=== PATIENT | female | born 1980 | race Hispanic/Latino ===

== ENCOUNTER 2018-04-21 21:22 | Emergency (ER) | payer OTHER ==
[2018-04-21 21:42] VITALS: RESP 18; TEMP 98.4; O2SAT 100
[2018-04-21] MEDS ORDERED: Apap-Butalbital-Caffeine 325-50-40mg Tab PO STA (21:48)
--- NOTE | 2018-04-21 21:50 | ED PDOC ---
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 Denies weakness, sensory change, neck stiffness, fevers, chills. Took NSAID today with some relief. PMD: None Past Medical History Reviewed: Historical Data, Nursing Documentation, Vital Signs Vital Signs: Last Vital Signs Temp 98.4 F 04/21/18 21:39 Pulse 70 04/21/18 21:39 Resp 18 04/21/18 21:39 BP 122/79 04/21/18 21:39 Pulse Ox 100 04/21/18 21:39 - Medical History PMH: No Chronic Diseases Denies: Chronic Kidney Disease - Family History Family History: States: Unknown Family Hx - Home Medications Home Medications: Ambulatory Orders Medication Instructions Recorded Ranitidine HCl [Zantac] 150 mg PO BID #10 tablet 01/11/16 Aspirin/Acetaminophen/Caffeine 1 each PO Q8 PRN #30 tablet 04/21/18 [Excedrin Migraine Geltab] - Allergies Allergies/Adverse Reactions: Allergies Allergy/AdvReac Type Severity Reaction Status Date / Time No Known Allergies Allergy Verified 04/21/18 21:39 Review of Systems ROS Statement: Except As Marked, All Systems Reviewed And Found Negative ENT: Positive for: Ear Pain Neurological: Positive for: Headache Physical Exam - Reviewed Nursing Documentation Reviewed: Yes Vital Signs Reviewed: Yes - Physical Exam Appears: Positive for: Well, Non-toxic, No Acute Distress Head Exam: Positive for: ATRAUMATIC, NORMAL INSPECTION, NORMOCEPHALIC Skin: Positive for: Normal Color, Warm, DRY Eye Exam: Positive for: EOMI, Normal appearance, PERRL ENT: Positive for: Normal ENT Inspection, TM Is/Are (normal) Neck: Positive for: Normal, Painless ROM Cardiovascular/Chest: Positive for: Regular Rate, Rhythm Respiratory: Positive for: CNT, Normal Breath Sounds Gastrointestinal/Abdominal: Positive for: Normal Exam, Soft. 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 Negative for: Motor/Sensory Deficits - ECG O2 Sat by Pulse Oximetry: 100 Pulse Ox Interpretation: Normal Medical Decision Making Medical Decision MakinPM Patient presenting with headache --Well appearing, normal vitals, nonfocal exam --Given daily headache x 3 weeks, will check CT to r/o mass lesion or other intracranial abnormality --Will give Fioricet and re-eval 11PM --CT Head is negative --Patient is feeling better --Advised patient to followup in the clinic --Return precautions given Disposition - Clinical Impression Clinical Impression: Headache - Patient ED Disposition Is Patient to be Admitted: No - Disposition Referrals: [facility] [Outside] Disposition: Routine/Home Disposition Time: 23:10 Condition: STABLE Prescriptions: Aspirin/Acetaminophen/Caffeine [Excedrin Migraine Geltab] 1 each PO Q8 PRN #30 tablet PRN Reason: Pain, Moderate (4-7) Instructions: Headache, Adult Forms: [facility] (Turkish) Print Language: BENGALI
[2018-04-21] MEDS ORDERED: Apap-Butalbital-Caffeine 325-50-40mg Tab ONE (21:54)
[2018-04-21 23:25] VITALS: BP 118/74; PULSE 76
--- NOTE | 2018-04-22 11:22 | CT ---
Date of service: 04/21/2018 PROCEDURE: CT HEAD WITHOUT CONTRAST. HISTORY: MOORE daily x 3 weeks COMPARISON: None available. TECHNIQUE: Axial computed tomography images were obtained through the head/brain without intravenous contrast. Radiation dose: Total exam DLP = 802.73 mGy-cm. This CT exam was performed using one or more of the following dose reduction techniques: Automated exposure control, adjustment of the mA and/or kV according to patient size, and/or use of iterative reconstruction technique. FINDINGS: HEMORRHAGE: No intracranial hemorrhage. BRAIN: No mass effect or edema. No atrophy or chronic microvascular ischemic changes. VENTRICLES: Unremarkable. No hydrocephalus. CALVARIUM: Unremarkable. PARANASAL SINUSES: Unremarkable as visualized. No significant inflammatory changes. MASTOID AIR CELLS: Unremarkable as visualized. No inflammatory changes. OTHER FINDINGS: None. IMPRESSION: Normal CT of the Head.
== END 2018-04-21 23:25 | disposition home or self-care (01) ==
LOC: H.ER 21:22
DX: R51 Headache (principal)

== ENCOUNTER 2018-07-16 20:11 | Emergency (ER) | payer MEDICARE, OTHER ==
[2018-07-16 21:21] VITALS: BP 105/74; PULSE 66; RESP 16; TEMP 98.3; O2SAT 100
--- NOTE | 2018-07-16 23:10 | ED PDOC ---
HPI: General Adult Time Seen by Provider: 07/16/18 22:18 Chief Complaint (Nursing): Headache Chief Complaint (Provider): left sided facial pain Additional Complaint(s): 38 y/o F with Left sided facial pain x 4 days that began gradually. She has been taking Tylenol with improvement but the pain returns immediately thereafter. Denies MOORE, dizziness, ear pain, fever, chills, night sweats, temporal pain, jaw pain, toothache. Further denies fever, chills night sweats, nasal congestion or neck pain. Past Medical History Reviewed: Historical Data, Nursing Documentation, Vital Signs Vital Signs: Last Vital Signs Temp 98.3 F 07/16/18 21:20 Pulse 66 07/16/18 21:20 Resp 16 07/16/18 21:20 BP 105/74 07/16/18 21:20 Pulse Ox 100 07/16/18 21:20 - Medical History PMH: Arthritis (left shoulder), Asthma, Hypercholesterolemia, Hyperlipidemia Denies: HIV, Chronic Kidney Disease - Family History Family History: States: No Known Family Hx - Home Medications Home Medications: Ambulatory Orders Medication Instructions Recorded Ranitidine HCl [Zantac] 150 mg PO BID #10 tablet 01/11/16 RX: Atorvastatin [Lipitor] 40 mg PO HS 10/16/17 RX: Magnesium Oxide [Mag-Ox] 400 mg PO BID #60 tab 10/19/17 Aspirin/Acetaminophen/Caffeine 1 each PO Q8 PRN #30 tablet 04/21/18 [Excedrin Migraine Geltab] RX: Ibuprofen [Motrin Tab] 800 mg PO Q6 PRN 7 Days tab 07/16/18 - Allergies Allergies/Adverse Reactions: Allergies Allergy/AdvReac Type Severity Reaction Status Date / Time codeine Allergy RASH Verified 06/22/18 07:39 Review of Systems Constitutional: Negative for: Fever, Chills Eyes: Negative for: Vision Change ENT: Negative for: Ear Pain, Ear Discharge, Nose Discharge, Nose Congestion Respiratory: Negative for: Cough, Shortness of Breath Skin: Negative for: Rash Physical Exam - Reviewed Nursing Documentation Reviewed: Yes Vital Signs Reviewed: Yes - Physical Exam Appears: Positive for: Well Head Exam: Positive for: ATRAUMATIC Skin: Negative for: Rash Eye Exam: Positive for: Normal appearance, EOMI, PERRL (no pain on palpation of Left cheeck, + dental caries with fillings noted on Left maxilla, no poor dentition noted.) ENT: Positive for: Normal ENT Inspection Neck: Positive for: Normal Cardiovascular/Chest: Positive for: Regular Rate, Rhythm Respiratory: Positive for: Normal Breath Sounds Lymphatic: Positive for: Normal Exam Neurologic/Psych: Positive for: Alert, Oriented - ECG O2 Sat by Pulse Oximetry: 100 Disposition - Clinical Impression Clinical Impression: Facial pain - Patient ED Disposition Is Patient to be Admitted: No - Disposition Referrals: [facility] [Outside] Disposition: Routine/Home Disposition Time: 23:15 Condition: STABLE Additional Instructions: F/u with your dentist as your pain is likely due to possible cavity. Take Tylenol and Ibuprofen for the pain. Prescriptions: RX: Ibuprofen [Motrin Tab] 800 mg PO Q6 PRN 7 Days tab PRN Reason: Pain, Moderate (4-7) Forms: [facility] (Malay) Print Language: INDIAN
== END 2018-07-16 23:18 | disposition home or self-care (01) ==
LOC: EDBD → EDUNIT# 20:11 → H.ER 20:11
DX: R51 Headache (principal)

== ENCOUNTER 2018-07-23 09:36 | Emergency (ER) | payer MEDICARE, OTHER, SELFPAY ==
[2018-07-23 11:56] VITALS: RESP 18
--- NOTE | 2018-07-23 12:57 | CT ---
Date of service: 07/23/2018 PROCEDURE: CT MAXILLOFACIAL BONES WITHOUT CONTRAST HISTORY: Severe nontraumatic central facial pain COMPARISON: None available. TECHNIQUE: Contiguous axial CT images of the maxillofacial bones were obtained. Coronal and sagittal reformats were generated. Radiation dose: Total exam DLP = 730.88 mGy-cm. This CT exam was performed using one or more of the following dose reduction techniques: Automated exposure control, adjustment of the mA and/or kV according to patient size, and/or use of iterative reconstruction technique. FINDINGS: NASAL BONES: The nasal bones are intact. ORBITS: The globes are symmetric and normal in appearance. No evidence for orbital cellulitis. PARANASAL SINUSES/ MASTOIDS: There is mild polypoid mucosal thickening in the right maxillary sinus. The remaining included paranasal sinuses are predominantly clear. MAXILLA: No acute maxillofacial fracture or bone destruction. MANDIBLE/ TEMPOROMANDIBULAR JOINTS: No acute fracture or dislocation. SKULL BASE: Unremarkable. TEMPORAL BONES: Middle ears and mastoid grossly unremarkable. OTHER FINDINGS: None. IMPRESSION: 1. Mild chronic right maxillary sinusitis. 2. No other significant abnormality.
--- NOTE | 2018-07-23 13:58 | ED PDOC ---
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 Denies trauma/injury, epistaxis, change vision, headache or weakness. Went to a dentist as she thought possibly tooth problem but told teeth are ok. Taking OTC NSAIDs with mild relief. Denies fever, neck pain, rhinorrhea, change hearing or ear or nasal discharge/ Past Medical History Reviewed: Historical Data, Nursing Documentation, Vital Signs Vital Signs: Last Vital Signs Temp 98.9 F 07/23/18 11:55 Pulse 60 07/23/18 11:55 Resp 18 07/23/18 11:55 BP 104/57 L 07/23/18 11:55 Pulse Ox 100 07/23/18 11:55 - Medical History PMH: Arthritis (left shoulder), Asthma, Hypercholesterolemia, Hyperlipidemia Denies: HIV, Chronic Kidney Disease - Family History Family History: States: Unknown Family Hx - Social History Current smoker - smoking cessation education provided: No - Home Medications Home Medications: Ambulatory Orders Medication Instructions Recorded Ranitidine HCl [Zantac] 150 mg PO BID #10 tablet 01/11/16 Aspirin/Acetaminophen/Caffeine 1 each PO Q8 PRN #30 tablet 04/21/18 [Excedrin Migraine Geltab] Ibuprofen [Motrin Tab] 600 mg PO Q6 PRN #15 tab 07/23/18 - Allergies Allergies/Adverse Reactions: Allergies Allergy/AdvReac Type Severity Reaction Status Date / Time No Known Allergies Allergy Unverified 07/23/18 10:38 Review of Systems Constitutional: Negative for: Fever Eyes: Negative for: Vision Change ENT: Positive for: Nose Pain, Other (facial pain). Negative for: Ear Pain, Nose Discharge, Throat Pain Cardiovascular: Negative for: Chest Pain Respiratory: Negative for: Shortness of Breath Gastrointestinal: Negative for: Abdominal Pain Genitourinary Female: Negative for: Dysuria Musculoskeletal: Negative for: Neck Pain, Back Pain Skin: Negative for: Rash, Lesions, Jaundice Neurological: Negative for: Weakness, Numbness Psych: Negative for: Depression Physical Exam - Reviewed Nursing Documentation Reviewed: Yes Vital Signs Reviewed: Yes - Physical Exam Appears: Positive for: Well, Non-toxic, No Acute Distress Head Exam: Positive for: ATRAUMATIC, NORMAL INSPECTION, NORMOCEPHALIC Skin: Positive for: Normal Color, Warm, DRY Eye Exam: Positive for: EOMI, Normal appearance, PERRL ENT: Positive for: Normal ENT Inspection, Other (no nasal septal hematoma, no rhinorrhea, no epistaxis). Negative for: Nasal Congestion, Tonsillar Swelling Neck: Positive for: Normal, Painless ROM Cardiovascular/Chest: Positive for: Regular Rate, Rhythm Respiratory: Positive for: Normal Breath Sounds. Negative for: Decreased Breath Sounds Gastrointestinal/Abdominal: Positive for: Soft. Negative for: Tenderness, Guarding Back: Positive for: Normal Inspection Extremity: Positive for: Normal ROM Neurologic/Psych: Positive for: Alert, Oriented. Negative for: Motor/Sensory Deficits - ECG O2 Sat by Pulse Oximetry: 100 Medical Decision Making Medical Decision Making: CT facial ordered Accession No. 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 TECHNIQUE: Contiguous axial CT images of the maxillofacial bones were obtained. Coronal and sagittal reformats were generated. Radiation dose: Total exam DLP = 730.88 mGy-cm. This CT exam was performed using one or more of the following dose reduction techniques: Automated exposure control, adjustment of the mA and/or kV according to patient size, and/or use of iterative reconstruction technique. FINDINGS: NASAL BONES: The nasal bones are intact. ORBITS: The globes are symmetric and normal in appearance. No evidence for orbital cellulitis. PARANASAL SINUSES/ MASTOIDS: There is mild polypoid mucosal thickening in the right maxillary sinus. The re maining included paranasal sinuses are predominantly clear. MAXILLA: No acute maxillofacial fracture or bone destruction. MANDIBLE/ TEMPOROMANDIBULAR JOINTS: No acute fracture or dislocation. SKULL BASE: Unremarkable. TEMPORAL BONES: Middle ears and mastoid grossly unremarkable. OTHER FINDINGS: None. IMPRESSION: 1. Mild chronic right maxillary sinusitis. 2. No other significant abnormality. CT brain report from fall 2017 reviewed also neurologically intact in ED. denies headache. symptoms ongoing >2 wk, followup ENT and PMD for further testing. Rx motrin. 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 Return to ER for any worse or new symptoms. Prescriptions: Ibuprofen [Motrin Tab] 600 mg PO Q6 PRN #15 tab PRN Reason: Pain, Moderate (4-7) Instructions: Sinus Headache (DC) Forms: [facility] (Salvadorean) Print Language: AZERI
[2018-07-23 14:40] VITALS: BP 112/70; PULSE 68; TEMP 98.5; O2SAT 99
== END 2018-07-23 14:39 | disposition home or self-care (01) ==
LOC: EDUNIT# → EDBD → SUPCPDRO 09:36 → H.ER 09:36 → EDUNIT# 09:36 → H.ER 14:39
DX: J32.0 Chronic maxillary sinusitis (principal); E78.00 Pure hypercholesterolemia, unspecified